=== PATIENT | female | born 1950 | race Two or more races ===

== ENCOUNTER 2022-05-07 09:16 | Outpatient (CLI) | payer OTHER, BC ==
[~2022-05-07 09:16] MED LIST: NABUMETONE500 MG PO; PERCOCET 5/3251 TAB PO
== END 2022-05-07 09:17 | disposition home or self-care (01) ==
LOC: LAB 09:16
PROVIDERS: ATTEND Internal Medicine
DX: I11.9 Hypertensive heart disease without heart failure (principal)

== ENCOUNTER 2022-06-17 08:45 | Outpatient (CLI) | payer OTHER, BC | END 2022-06-17 08:53 | disposition home or self-care (01) | LOC: MAMO-SONO 08:45 | PROVIDERS: ATTEND Internal Medicine Geriatric Medicine | DX: Z12.31 Encounter for screening mammogram for malignant neoplasm of breast (principal); C50.919 Malignant neoplasm of unspecified site of unspecified female breast; N63.0 Unspecified lump in unspecified breast; N64.4 Mastodynia; N60.12 Diffuse cystic mastopathy of left breast; N60.11 Diffuse cystic mastopathy of right breast; I11.9 Hypertensive heart disease without heart failure; R06.02 Shortness of breath ==

== ENCOUNTER 2022-06-20 12:44 | Outpatient (CLI) | payer OTHER, BC | END 2022-06-20 12:51 | disposition home or self-care (01) | LOC: NUCLEAR 12:44 | PROVIDERS: ATTEND Internal Medicine Geriatric Medicine | DX: M81.0 Age-related osteoporosis without current pathological fracture (principal); M15.0 Primary generalized (osteo)arthritis ==

== ENCOUNTER → 2022-06-30 06:48 | Outpatient (CLI) | payer OTHER, BC | END | disposition home or self-care (01) | LOC: LAB 06:48 | PROVIDERS: ATTEND Internal Medicine Geriatric Medicine | DX: D50.8 Other iron deficiency anemias (principal); E03.8 Other specified hypothyroidism; E78.2 Mixed hyperlipidemia; I11.9 Hypertensive heart disease without heart failure; E56.8 Deficiency of other vitamins; N39.0 Urinary tract infection, site not specified; Z12.11 Encounter for screening for malignant neoplasm of colon; E55.9 Vitamin D deficiency, unspecified; N19 Unspecified kidney failure; E11.8 Type 2 diabetes mellitus with unspecified complications; R80.8 Other proteinuria; K92.1 Melena; D64.89 Other specified anemias ==

== ENCOUNTER → 2022-07-14 07:47 | Outpatient (CLI) | payer OTHER, BC | END | disposition home or self-care (01) | LOC: LAB 07:47 | PROVIDERS: ATTEND Internal Medicine Gastroenterology | DX: Z11.52 Encounter for screening for COVID-19 (principal); Z20.822 Contact with and (suspected) exposure to COVID-19; Z20.828 Contact with and (suspected) exposure to other viral communicable diseases ==

== ENCOUNTER → 2023-05-12 06:43 | Outpatient (CLI) | payer OTHER, BC ==
[2023-05-12 07:31] LABS: HEMATOCRIT 36.4 % (36.0-45.00); HEMOGLOBIN 12.1 g/dL (12.0-15.00); MEAN CELL VOLUME 85.4 fL (80.00-100.00); MEAN CORPUSCULAR HEMOGLOBIN 28.4 pg (27.00-32.0); MEAN CORPUSCULAR HGB CONC 33.2 g/dl (32.0-36.0); PLATELET COUNT 232 K/uL (150-450); RED BLOOD COUNT 4.27 M/uL (4.00-6.00); RED CELL DISTRIBUTION WIDTH 14.3 % (11.5-14.5)
[2023-05-12 07:45] LABS: URINE APPEARANCE Clear; URINE BILIRRUBIN Negative (NEGATIVE); URINE BLOOD Negative; URINE COLOR Yellow; URINE GLUCOSE Negative (NEGATIVE); URINE LEUKOCYTE Trace; URINE NITRATE Negative; URINE PROTEIN Negative (NEGATIVE); URINE UROBILINOGEN 0.2 E.U./dl
[2023-05-12 07:49] LABS: URINE EPITHELIAL CELLS 2.1 uL (0.0-38.8); URINE RBC 8.9 uL (0.0-20.8)
[2023-05-12 07:53] LABS: URINE WBC 1.3 uL (0.0-23.2)
[2023-05-12 08:00] LABS: ALBUMIN 3.5 gm/dL (3.4-5.0); BILIRUBIN TOTAL 0.28 mg/dL (0.3-1.2); CALCIUM 9.1 mg/dL (8.5-10.1); CHOL HDL RATIO 1.9 (0-5.0); CREATININE SERUM 0.59 mg/dL (0.55-1.02); GFR 100.48; POTASSIUM 4.5 mEq/L (3.5-5.1); TOTAL PROTEIN 6.5 gm/dL (6.4-8.2); TSH 0.936 uIU/mL (0.358-3.74)
== END | disposition home or self-care (01) ==
LOC: LAB 06:43
PROVIDERS: ATTEND Internal Medicine Geriatric Medicine
DX: D50.9 Iron deficiency anemia, unspecified (principal); E03.9 Hypothyroidism, unspecified; E78.2 Mixed hyperlipidemia; I11.9 Hypertensive heart disease without heart failure; E56.8 Deficiency of other vitamins; N39.0 Urinary tract infection, site not specified; Z12.11 Encounter for screening for malignant neoplasm of colon; R19.5 Other fecal abnormalities; E55.9 Vitamin D deficiency, unspecified; N19 Unspecified kidney failure; E11.9 Type 2 diabetes mellitus without complications

== ENCOUNTER 2023-07-28 08:15 | Outpatient (CLI) | payer OTHER, BC | END 2023-07-28 08:23 | disposition home or self-care (01) | LOC: MAMO-SONO 08:15 | PROVIDERS: ATTEND Internal Medicine Geriatric Medicine | DX: C50.919 Malignant neoplasm of unspecified site of unspecified female breast (principal); Z12.31 Encounter for screening mammogram for malignant neoplasm of breast; N63.0 Unspecified lump in unspecified breast; N64.4 Mastodynia; N60.12 Diffuse cystic mastopathy of left breast; N60.11 Diffuse cystic mastopathy of right breast ==

== ENCOUNTER 2024-05-28 07:20 | Outpatient (CLI) | payer OTHER, BC ==
[2024-05-28 08:27] LABS: HEMATOCRIT 36.5 % (36.0-45.00); MEAN CELL VOLUME 85.2 fL (80.00-100.00); MEAN CORPUSCULAR HEMOGLOBIN 28.1 pg (27.00-32.0); PLATELET COUNT 192 K/uL (150-450); RED BLOOD COUNT 4.28 M/uL (4.00-6.00); RED CELL DISTRIBUTION WIDTH 16.9 % (11.5-14.5)
[2024-05-28 08:28] LABS: URINE APPEARANCE Clear; URINE BILIRRUBIN Negative (NEGATIVE); URINE BLOOD Negative; URINE COLOR Yellow; URINE GLUCOSE Negative (NEGATIVE); URINE KETONE Negative (NEGATIVE); URINE LEUKOCYTE Negative; URINE NITRATE Negative; URINE PROTEIN Negative (NEGATIVE); URINE UROBILINOGEN 0.2 E.U./dl
[2024-05-28 08:29] LABS: URINE BACTERIA 13.4 uL (0.0-1933); URINE EPITHELIAL CELLS 2.2 uL (0.0-38.8); URINE RBC 7.2 uL (0.0-20.8)
[2024-05-28 08:33] LABS: URINE CAST 0.14 uL (0.0-1.40); URINE WBC 1.2 uL (0.0-23.2)
[2024-05-28 09:06] LABS: ALBUMIN 3.6 gm/dL (3.4-5.0); BILIRUBIN TOTAL 0.33 mg/dL (0.3-1.2); CALCIUM 8.6 mg/dL (8.5-10.1); CHOL HDL RATIO 1.8 (0-5.0); CREATININE SERUM 0.58 mg/dL (0.55-1.02); GFR 102.19; POTASSIUM 3.99 mEq/L (3.5-5.1); TOTAL PROTEIN 6.6 gm/dL (6.4-8.2); TSH 1.13 uIU/mL (0.358-3.74)
[2024-05-28 13:45] LABS: ob POSITIVE (NEGATIVE)
== END 2024-05-28 07:21 | disposition home or self-care (01) ==
LOC: LAB 07:20
PROVIDERS: ATTEND Internal Medicine Geriatric Medicine
DX: D50.9 Iron deficiency anemia, unspecified (principal); E03.9 Hypothyroidism, unspecified; E78.2 Mixed hyperlipidemia; I11.9 Hypertensive heart disease without heart failure; E56.8 Deficiency of other vitamins; N39.0 Urinary tract infection, site not specified; Z12.11 Encounter for screening for malignant neoplasm of colon; E55.9 Vitamin D deficiency, unspecified; N19 Unspecified kidney failure; E11.9 Type 2 diabetes mellitus without complications; R80.9 Proteinuria, unspecified; K92.1 Melena; I10 Essential (primary) hypertension

== ENCOUNTER 2024-07-25 06:24 | Outpatient (CLI) | payer OTHER, BC ==
[2024-07-25 08:03] LABS: PH,URINE 8.5 (5.0-8.0); URINE APPEARANCE Clear; URINE BILIRRUBIN Negative (NEGATIVE); URINE BLOOD Negative; URINE COLOR Yellow; URINE GLUCOSE Negative (NEGATIVE); URINE KETONE Negative (NEGATIVE); URINE LEUKOCYTE Negative; URINE NITRATE Negative; URINE PROTEIN Negative (NEGATIVE); URINE UROBILINOGEN 0.2 E.U./dl
[2024-07-25 08:05] LABS: URINE BACTERIA 13.4 uL (0.0-1933); URINE EPITHELIAL CELLS 1.7 uL (0.0-38.8); URINE RBC 3.2 uL (0.0-20.8)
[2024-07-25 08:06] LABS: URINE WBC 0.6 uL (0.0-23.2)
[2024-07-25 08:32] LABS: HEMATOCRIT 39.5 % (36.0-45.00); MEAN CELL VOLUME 84.1 fL (80.00-100.00); MEAN CORPUSCULAR HEMOGLOBIN 27.7 pg (27.00-32.0); PLATELET COUNT 229 K/uL (150-450); RED BLOOD COUNT 4.69 M/uL (4.00-6.00); RED CELL DISTRIBUTION WIDTH 14.2 % (11.5-14.5)
[2024-07-25 08:37] LABS: INR 0.97; PROTHROMBIN TIME 10.6 SECONDS (9.0-11.5)
[2024-07-25 08:52] LABS: COL EPI 90 SECONDS (82-175)
[2024-07-25 08:58] LABS: ALBUMIN 3.6 gm/dL (3.4-5.0); BILIRUBIN TOTAL 0.28 mg/dL (0.3-1.2); CALCIUM 9.3 mg/dL (8.5-10.1); CHOL HDL RATIO 2.1 (0-5.0); CREATININE SERUM 0.61 mg/dL (0.55-1.02); GFR 96.14; GLOBULINA 3.1 G/DL (2.4-3.5); POTASSIUM 4.29 mEq/L (3.5-5.1); TOTAL PROTEIN 6.7 gm/dL (6.4-8.2)
[2024-07-25 09:55] LABS: % SATURACION 16.7 % (15-50); FERRITIN 72.4 NG/ML (8-252)
[2024-07-25 09:56] LABS: TSH 0.103 uIU/mL (0.358-3.74)
[2024-07-25 10:18] LABS: ob NEGATIVE (NEGATIVE)
[2024-07-25 11:25] LABS: FOLIC ACID > 20.00 ng/ml (4.78-20)
== END 2024-07-25 06:33 | disposition home or self-care (01) ==
LOC: LAB 06:24
PROVIDERS: ATTEND Internal Medicine Hematology & Oncology
DX: D50.9 Iron deficiency anemia, unspecified (principal); E03.9 Hypothyroidism, unspecified; E78.2 Mixed hyperlipidemia; I11.9 Hypertensive heart disease without heart failure; E56.8 Deficiency of other vitamins; N39.0 Urinary tract infection, site not specified; Z12.11 Encounter for screening for malignant neoplasm of colon; R19.5 Other fecal abnormalities; E55.9 Vitamin D deficiency, unspecified; N19 Unspecified kidney failure; E11.9 Type 2 diabetes mellitus without complications; D50.8 Other iron deficiency anemias; I10 Essential (primary) hypertension; R74.02 Elevation of levels of lactic acid dehydrogenase [LDH]; K76.89 Other specified diseases of liver; C56.9 Malignant neoplasm of unspecified ovary; R97.0 Elevated carcinoembryonic antigen [CEA]; D68.8 Other specified coagulation defects; D69.1 Qualitative platelet defects; G43.001 Migraine without aura, not intractable, with status migrainosus; M81.0 Age-related osteoporosis without current pathological fracture

== ENCOUNTER 2024-07-28 07:02 | Outpatient (CLI) | payer OTHER, BC | END 2024-07-28 07:07 | disposition home or self-care (01) | LOC: MAMO-SONO 07:02 | PROVIDERS: ATTEND Internal Medicine Geriatric Medicine | DX: Z12.31 Encounter for screening mammogram for malignant neoplasm of breast (principal); C50.919 Malignant neoplasm of unspecified site of unspecified female breast; N63.0 Unspecified lump in unspecified breast; N64.4 Mastodynia; N60.12 Diffuse cystic mastopathy of left breast; N60.11 Diffuse cystic mastopathy of right breast ==

== ENCOUNTER 2025-05-16 06:46 | Outpatient (CLI) | payer OTHER, BC ==
[2025-05-16 07:55] LABS: BASO % 0.7 % (0.1-1.2); EOS # 0.14 (0.04-0.54); EOS % 4.8 % (0.7-7.0); LYMPH # 0.99 (1.18-3.74); LYMPH % 33.8 % (19.3-53.1); MEAN PLATELET VOLUME 11.50 fl (9.4-12.4); MONO # 0.37 (0.24-0.82); NEUT # 1.41 (1.56-6.13); NEUT % 48.1 % (34.0-71.1); RED CELL DISTRIBUTION WIDTH 13.8 % (11.6-14.4)
[2025-05-16 08:20] LABS: MONO % 12.6 % (4.7-12.5); ob NEGATIVE (NEGATIVE)
[2025-05-16 08:25] LABS: INR 0.94
[2025-05-16 08:48] LABS: % SATURACION 28.7 % (15-50); ALT/SGPT 24.0 U/L (12-78); AST/SGOT 21.0 U/L (15-37); BILIRUBIN TOTAL 0.47 mg/dL (0.3-1.2); BUN CREA RATIO 37.0 (7.0-25.0); CREATININE SERUM 0.52 mg/dL (0.55-1.02); FE 95.0 ug/dl (50-170); GFR 115.59; GLOBULINA 3.2 G/DL (2.4-3.5); GLUCOSE FASTING 88.0 mg/dL (65-100); LDH 176.0 U/L (84-246); OSMOLALITY SERUM 289.0 MOSM/KG (275-295)
[2025-05-16 10:03] LABS: COL EPI 146 SECONDS (82-175)
[2025-05-16 14:58] LABS: FOLIC ACID 16.85 ng/ml (4.78-20); VITAMIN D3 25 HYDROXY 30.62 ng/ml (30-120)
== END 2025-05-16 06:54 | disposition home or self-care (01) ==
LOC: LAB 06:46
PROVIDERS: ATTEND Internal Medicine Hematology & Oncology
DX: D50.8 Other iron deficiency anemias (principal); G43.001 Migraine without aura, not intractable, with status migrainosus; R19.5 Other fecal abnormalities; M81.0 Age-related osteoporosis without current pathological fracture; I10 Essential (primary) hypertension; R74.02 Elevation of levels of lactic acid dehydrogenase [LDH]; K76.89 Other specified diseases of liver; Z12.11 Encounter for screening for malignant neoplasm of colon; D68.8 Other specified coagulation defects; D69.1 Qualitative platelet defects; E55.9 Vitamin D deficiency, unspecified; Z13.29 Encounter for screening for other suspected endocrine disorder